=== PATIENT | female | born 1980 | race Caucasian/White ===

== ENCOUNTER → 2020-10-05 | Outpatient (CLI) | payer OTHER | LOC: SJCVCIMAG 10:12 | PROVIDERS: ATTEND Internal Medicine Cardiovascular Disease | DX: I48.91 Unspecified atrial fibrillation (principal); I10 Essential (primary) hypertension; R00.0 Tachycardia, unspecified; Z86.16 Personal history of COVID-19; Z87.891 Personal history of nicotine dependence ==